=== PATIENT | female | born 1950 | race Caucasian/White ===

== ENCOUNTER 2022-08-01 17:54 | Emergency (ER) | payer OTHER, MEDICARE ==
[2022-08-01 18:10] VITALS: BP 156/84; PULSE 62; RESP 18; TEMP 98.6; BMI 25.7
== END 2022-08-01 19:36 | disposition home or self-care (01) ==
LOC: FER 17:54
DX: S06.0X0A Concussion without loss of consciousness, initial encounter (principal); R51.9 Headache, unspecified; R42 Dizziness and giddiness; W22.8XXA Striking against or struck by other objects, initial encounter
CPT/HCPCS: 70450-TC; 99284-25